=== PATIENT | male | born 1955 | race Caucasian/White ===

== ENCOUNTER 2016-05-17 15:09 | Emergency (ER) | payer OTHER ==
[2016-05-17 16:40] VITALS: BP 101/61
--- NOTE | 2016-05-17 17:02 | UC ---
Hand/Wrist HPI - HPI Summary HPI Summary: Distal L index finger struck by liore cord 2 days ago, now bruised and swollen. 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 - History Of Current Complaint Chief Complaint: UCUpperExtremity Stated Complaint: FINGER INJURY Time Seen by Provider: 05/17/16 16:41 Hx Obtained From: Patient ?: No Onset/Duration: Sudden Onset Severity Initially: Moderate Severity Currently: Mild Character Of Pain: Dull, Stiffness Aggravating Factor(s): Movement Associated Signs And Symptoms: Positive: Bruising Related History: Dominant Hand Right - Allergies/Home Medications Allergies/Adverse Reactions: Allergies Allergy/AdvReac Type Severity Reaction Status Date / Time No Known Allergies Allergy Verified 05/17/16 16:35 Home Medications: Home Medications NK [No Home Medications Reported] 05/17/16 [History Confirmed 05/17/16] PMH/Surg Hx/FS Hx/Imm Hx Previously Healthy: Yes - Surgical History Surgical History: None - Family History Known Family History: Negative: Blood Disorder - Social History Occupation: Employed Full-time Alcohol Use: Rare Substance Use Type: None Smoking Status (MU): Never Smoked Tobacco Review of Systems Constitutional: Negative Skin: Bruising Eyes: Negative ENT: Negative Respiratory: Negative Cardiovascular: Negative Gastrointestinal: Negative Genitourinary: Negative Motor: Negative Neurovascular: Negative Musculoskeletal: Arthralgia Neurological: Negative Psychological: Negative All Other Systems Reviewed And Are Negative: Yes Physical Exam Triage Information Reviewed: Yes Appearance: Well-Appearing, No Pain Distress, Well-Nourished Vital Signs: Initial Vital Signs Temp 98.4 F 05/17/16 16:36 Pulse 60 05/17/16 16:36 Resp 18 05/17/16 16:36 BP 101/61 05/17/16 16:36 Pulse Ox 100 05/17/16 16:36 Vital Signs Reviewed: Yes Eye Exam: Normal Eyes: Positive: Conjunctiva Clear ENT Exam: Normal ENT: Positive: Normal ENT inspection, Hearing grossly normal, Pharynx normal, TMs normal Dental Exam: Normal Neck exam: Normal Neck: Positive: Supple, Nontender, No Lymphadenopathy Respiratory Exam: Normal Respiratory: Positive: Chest non-tender, Lungs clear, Normal breath sounds, No respiratory distress, No accessory muscle use Cardiovascular Exam: Normal Cardiovascular: Positive: RRR, No Murmur Musculoskeletal: Positive: Strength Intact, ROM Intact Neurological Exam: Normal Psychological Exam: Normal Skin Exam: Normal Hand/Wrist Course/Dx - Differential Dx/Diagnosis Provider Diagnoses: L index finger contusion Discharge - Discharge Plan Condition: Stable Disposition: HOME Patient Education Materials: Contusion in Adults (ED) Additional Instructions: The radiology report was entered while I was in your room; the radiologist also thinks your radiograph looks entirely normal. You can increase your activities as tolerated; I expect your finger to be back to normal within a week or so. Please see your primary care provider if you have new or prolonged symptoms.
--- NOTE | 2016-05-17 17:13 | RAD ---
INDICATION: Left second finger injury. TECHNIQUE: 3 views of the left second finger were obtained. FINDINGS: The bones are normal alignment. No fracture is seen. Joint spaces appear maintained. IMPRESSION: NO EVIDENCE FOR FRACTURE.
== END 2016-05-17 17:22 | disposition home or self-care (01) ==
LOC: UCEAST 15:09
DX: S60.022A Contusion of left index finger without damage to nail, initial encounter (principal); W22.8XXA Striking against or struck by other objects, initial encounter; Y93.9 Activity, unspecified; Y92.9 Unspecified place or not applicable
CPT/HCPCS: 73140; 99211; G0463

== ENCOUNTER 2017-12-20 12:47 | Emergency (ER) | payer OTHER ==
[2017-12-20 12:58] VITALS: BP 119/74
--- NOTE | 2017-12-20 13:26 | RAD ---
HISTORY: trauma COMPARISONS: None VIEWS: 3 , Frontal, lateral, and oblique views of the second digit of the left hand FINDINGS: BONE DENSITY: Normal. BONES: There is a nondisplaced fracture through the volar aspect of the base of the middle phalanx of the second digit with extension to the articular surface. JOINTS: There is no arthropathy. ALIGNMENT: There is no dislocation. SOFT TISSUES: Unremarkable. OTHER FINDINGS: None. IMPRESSION: NONDISPLACED FRACTURE OF THE BASE OF THE MIDDLE PHALANX OF THE SECOND DIGIT
--- NOTE | 2017-12-20 13:47 | UC ---
Upper Extremity HPI - HPI Summary HPI Summary: Patient complains of pain and swelling to the second digit of left hand after dropping chair on it today. 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 - History of Current Complaint Chief Complaint: UCUpperExtremity Stated Complaint: FINGER INJURY Time Seen by Provider: 12/20/17 13:03 Hx Obtained From: Patient Onset/Duration: Sudden Onset Severity Initially: Mild Severity Currently: Mild Pain Intensity: 3 Pain Scale Used: 0-10 Numeric Location Of Pain: Is Discrete @ Character: Throbbing Aggravating Factor(s): Movement - Allergies/Home Medications Allergies/Adverse Reactions: Allergies Allergy/AdvReac Type Severity Reaction Status Date / Time No Known Allergies Allergy Verified 12/20/17 12:58 PMH/Surg Hx/FS Hx/Imm Hx Previously Healthy: Yes - Surgical History Surgical History: None Surgery Procedure, Year, and Place: denies - Family History Known Family History: Negative: Blood Disorder - Social History Alcohol Use: Daily Substance Use Type: None Smoking Status (MU): Never Smoked Tobacco Review of Systems Constitutional: Negative Skin: Negative Eyes: Negative ENT: Negative Respiratory: Negative Cardiovascular: Negative Gastrointestinal: Negative Genitourinary: Negative Motor: Negative Neurovascular: Negative Musculoskeletal: Negative Neurological: Negative Psychological: Negative All Other Systems Reviewed And Are Negative: Yes Physical Exam - Summary Physical Exam Summary: Mild swelling of the second digit of left hand. No deformity, erythema, ecchymosis, wound noted. PMS intact distally active flexion and extension intact. Triage Information Reviewed: Yes Appearance: Well-Appearing Vital Signs: Initial Vital Signs Temp 98.7 F 12/20/17 12:52 Pulse 77 12/20/17 12:52 Resp 18 12/20/17 12:52 BP 119/74 12/20/17 12:52 Pulse Ox 99 12/20/17 12:52 Vital Signs Reviewed: Yes Eye Exam: Normal Neck exam: Normal Respiratory Exam: Normal Cardiovascular Exam: Normal Abdominal Exam: Normal Musculoskeletal Exam: Normal Neurological Exam: Normal Psychological Exam: Normal Skin Exam: Normal Upper Extremity Course/Dx - Course Course Of Treatment: Patient complains of pain and swelling to the second digit of left hand after dropping chair on it today. 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 Physical exam:Mild swelling of the second digit of left hand. No deformity, erythema, ecchymosis, wound noted. PMS intact distally active flexion and extension intact. Vital signs normal. X-ray positive for nondisplaced finger fracture. Finger brace placed. Follow-up with orthopedics - Differential Dx/Diagnosis Provider Diagnoses: non displaced finger fracture 2nd digit left hand Discharge - Sign-Out/Discharge Documenting (check all that apply): Patient Departure All imaging exams completed and their final reports reviewed: Yes - finger fracture middle phalange second digit left hand - Discharge Plan Condition: Stable Disposition: HOME Patient Education Materials: Finger Fracture (ED) Referrals: No Primary Care Phys,NOPCP [Primary Care Provider] - Mario Chavira MD [Medical Doctor] - Additional Instructions: Ice and ibuprofen. Keep finger protected. Follow up with orthopedics Dr. Martins. - Billing Disposition and Condition Condition: STABLE Disposition: Home
== END 2017-12-20 13:53 | disposition home or self-care (01) ==
LOC: UCEAST 12:47
DX: S62.651A Nondisplaced fracture of middle phalanx of left index finger, initial encounter for closed fracture (principal); W20.8XXA Other cause of strike by thrown, projected or falling object, initial encounter; Y93.9 Activity, unspecified; Y92.9 Unspecified place or not applicable
CPT/HCPCS: 73140; 99211; G0463